=== PATIENT | male | born 1975 | race Caucasian/White ===

== ENCOUNTER 2017-07-10 06:27 | Emergency (ER) | payer OTHER ==
[2017-07-10 06:54] VITALS: TEMP 97.7
--- NOTE | 2017-07-10 07:00 | EDPHY ---
H & P Smoking Status: Current every day smoker Time Seen by Provider: 07/10/17 06:49 HPI/ROS: CC: right shoulder pain HPI: This 42-year-old right hand male a with past medical history of traumatic injuries after a fall from a bridge in 1997 presents to the emergency department today complaining of right shoulder pain. 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 The pain is in the anterior upper chest near the clavicle region and radiates straight through to his back. It hurts when he moves his arm. He feels like his right arm has less strength than usual. "I have no push and pull." No relief with ibuprofen (last dose this a.m.) He states occasionally he will feel short of breath he with this pain. He admits to smoking 1 pack of cigarettes a day for the last 35 years. He denies recent illness. He has not had a fever, productive cough, sore throat, chest pain, palpitations, abdominal pain, leg pain or swelling. No recent long trips or travel. REVIEW OF SYSTEMS: Constitutional: No fever, no chills. Eyes: No discharge. ENT: No sore throat. Respiratory: See HPI. Cardiac: See HPI. Gastrointestinal: No abdominal pain, no vomiting. Genitourinary: No hematuria. Musculoskeletal: No neck or back pain. No leg pain or swelling. Skin: No rashes. Neurological: No headache. (Tracee Valencia) Past Medical/Surgical History: PMH: Fall from a bridge in 1997 PSH: Due to the fall from a bridge, the patient had reconstructive surgery of his right hip, screws in his pelvis, pins in his neck from C1 through C4, a pneumothorax and a splenectomy. He had his gallbladder out he more recently. FH: Denied. No premature coronary artery disease. NKDA Meds: None No PCP (moved here from [place] this summer). (Tracee Valencia) Social History: Patient states he has smoked 1 pack of cigarette per day for the last 35 years. He denies alcohol use. He will smoke marijuana occasionally and denies other drug use. He has no primary care provider as he just moved here from [place] this past summer. (Tracee Valencia) Physical Exam: General Appearance: Alert, mild distress. Eyes: Pupils equal and round no pallor or injection. ENT, Mouth: Mucous membranes are moist. Respiratory: There are no retractions, lungs are clear to auscultation. Cardiovascular: Regular rate and rhythm. Chest wall: TTP over distal right clavicle. No obvious deformity. Gastrointestinal: Abdomen is soft and nontender, no masses, bowel sounds normal. Neurological: Awake and alert. Skin: Warm and dry, no rashes. Musculoskeletal: Neck is supple nontender. Extremities are symmetrical, full range of motion. No calf swelling, warmth, cords or erythema. Pain with abduction of right shoulder and decreased strength (+Gary test). Psychiatric: Patient is oriented X 3, there is no agitation. DIFFERENTIAL DIAGNOSIS: After history and physical exam differential diagnosis was considered for but not limited to: cardiac etiology, pneumothorax, musculoskeletal pain, rotator cuff injury, pneumonia, unlikely PE. (Tracee Valencia) Constitutional: Initial Vital Signs Temperature (C) 36.5 C 07/10/17 06:37 Heart Rate 75 07/10/17 06:37 Respiratory Rate 15 07/10/17 06:37 Blood Pressure 149/100 H 07/10/17 06:37 O2 Sat (%) 98 07/10/17 06:37 O2 Delivery Mode Room Air Allergies/Adverse Reactions: No Known Allergies Allergy (Unverified 07/10/17 06:37) Home Medications: Medication Instructions Recorded Hydrocodone/APAP 5/325 [[place] 1 - 2 tab PO Q4 #13 tab 07/10/17 5/325 (RX)] Medical Decision Making ED Course/Re-evaluation: The patient was seen and examined. His vital signs were reviewed and was notable for elevated blood pressure. His oxygen saturations on room air were within normal limits. He was given two 5 mg [place] tablets for his pain as he had already taken ibuprofen this morning. An EKG was performed showed normal sinus rhythm with a heart rate 58 in no acute ischemic changes. X-ray of his right shoulder and chest x-ray were ordered and signed out to the oncoming provider Dr. Marisol Vazquez who will re-evaluate and disposition the patient. (Tracee Valencia) 700: The patient is signed out to me at change of shift. I reviewed the case with Dr. Marvin. I went personally evaluated the patient. Patient does state he works as a arc welder is not sure if he hurt himself. His pain is in his right shoulder. It feels as though she was anteriorly through the posterior part of the shoulder. Is worse with movement. He has mild decreased strength. No numbness or tingling. No neck pain. He has no headache. The patient describes chest pain, but states this radiates from her shoulder. No new shortness of breath. The patient is a long-time smoker. GENERAL: Well-appearing, in no acute distress, alert. HEENT: Eyes normal to inspection, normal pharynx, no signs of dehydration. NECK: No thyromegaly, no lymphadenopathy, supple. No tenderness palpation. Full range of motion. RESPIRATORY: Clear to auscultation bilaterally, no rales, rhonchi or wheezing. CVS: Regular rate and rhythm, no rubs, murmurs, or gallops. SKIN: Normal color, no rash, warm, dry. No pallor. Tattoos. EXTREMITIES: Patient's right extremity appears normal. He has mild tenderness palpation deep into his anterior right shoulder. It is worse with rotation. Neurovascular intact distally NEURO/PSYCH: Alert and oriented, normal mood and affect, normal motor sensory exam. EKG shows normal sinus rhythm, normal rate, normal axis, normal intervals. There are no ST or T-wave abnormalities. EKG is normal as interpreted by me. Right shoulder x-ray: No acute disease noted. Chest x-ray: No acute disease noted. The patient does have some nodules. Please refer the dictated report by the radiologist. I discussed the results with the patient. Answered all his questions. He will follow up with Orthopedics and his primary care physician. He is aware that his primary care physician needs to follow up on the nodule seen on his chest x- ray. Patient does have a smoking history. He is given warnings prior to leaving. He will return with worsening symptoms. I do not feel this is secondary to ACS, acute WI, pneumonia, pneumothorax, mass , malignancy or PE. (Marisol Vazquez) - Data Points Medications Given: Discontinued Medications Hydrocodone Bitart/Acetaminophen ([place] 5/325) 2 tab PO EDNOW ONE Stop: 07/10/17 07:02 Last Admin: 07/10/17 07:10 Dose: 2 tab Departure - Departure Disposition: Home, Routine, Self-Care Clinical Impression: Right shoulder pain Qualifiers: Chronicity: acute Qualified Code(s): M25.511 - Pain in right shoulder Condition: Good Instructions: Shoulder Pain (ED) Additional Instructions: You need close follow-up with your primary care physician as well as Orthopedics. There is no fracture or bony abnormality. Your chest x-ray did reveal a few nodules. This will need follow-up by your primary care physician because he was smoking history. You were given contact information with Dr. Denson if you do not have a primary care physician. Referrals: Gonzalo Katz MD [Medical Doctor] - 5-7 days, call for appt. Carlos Denson MD [Medical Doctor] - 5-7 days, call for appt. Prescriptions: Hydrocodone/APAP 5/325 [[place] 5/325 (RX)] 1 - 2 tab PO Q4 #13 tab
[2017-07-10] MEDS ORDERED: HYDROCODONE/APAP 5/325 TAB PO ONE (07:01)
--- NOTE | 2017-07-10 07:07 | CPEKG ---
Heart Rate: 58 RR Interval: 1034 P-R Interval: 168 QRSD Interval: 88 QT Interval: 412 QTC Interval: 405 P [place]: 16 QRS [place]: 78 T Wave [place]: 34 EKG Severity - NORMAL ECG - EKG Impression: SINUS RHYTHM Electronically Signed By: Tracee Valencia 10-Jul-2017 07:19:49
[2017-07-10 07:42] VITALS: BP 149/92; PULSE 68; RESP 18; O2SAT 97
== END 2017-07-10 07:38 | disposition home or self-care (01) ==
LOC: CED 06:27
DX: M25.511 Pain in right shoulder (principal); F17.200 Nicotine dependence, unspecified, uncomplicated
CPT/HCPCS: 71020-PO; 73030-PO

== ENCOUNTER 2017-09-18 10:59 | Emergency (ER) | payer OTHER ==
[2017-09-18 11:11] VITALS: TEMP 98.1
[2017-09-18] MEDS ORDERED: NS 1,000 ML IV ONE (11:14)
[2017-09-18] MEDS ORDERED: HYDROmorphONE/DILAUDID 1 MG/ML INJ IVP ONE (11:48)
--- NOTE | 2017-09-18 11:51 | EDPHY ---
H & P Stated Complaint: last night started with L flank pain Time Seen by Provider: 09/18/17 11:14 HPI/ROS: This patient complains of left flank pain gradual in onset-intermittent yesterday but severe today 10/10 intensity at its peak with slight improvement after 800 mg of ibuprofen at 5:00 a.m.. The pain is nonradiating, sharp in nature and similar to prior kidney stones. Patient reports some hematuria work the prompted his visit here for further evaluation. His drove here by private vehicle for further evaluation. He reports associated diaphoresis with the pain which is happened to him in the past with his kidney stone pain. ROS: No fevers or chills. No other constitutional symptoms HEENT: No URI symptoms Pulmonary: No shortness of breath pleuritic pain GI: No nausea vomiting or abdominal pain. : No testicular pain or swelling. No dysuria. Musculoskeletal: No recent back injuries. This does not feel muscular to him. No midline back pain. No worsening with movement such as bending forward. Integumentary: No skin rash 10 point ROS is otherwise negative. Source: Patient Exam Limitations: No limitations - Personal History Current Tetanus/Diphtheria Vaccine: Yes - Medical/Surgical History PMH: Kidney stones Hx Asthma: No Hx Chronic Respiratory Disease: No Hx Diabetes: No Hx Cardiac Disease: No Hx Renal Disease: No Hx Cirrhosis: No Hx Alcoholism: No Hx HIV/AIDS: No Hx Splenectomy or Spleen Trauma: Yes Other PMH: spleenectomy, cholecystectomy - Family History Significant Family History: No pertinent family hx - Social History Smoking Status: Current every day smoker Alcohol Use: None Drug Use: Marijuana - Physical Exam Exam: General Appearance: Alert, no distress. Eyes: Pupils equal and round no pallor or injection. ENT, Mouth: Mucous membranes moist. Respiratory: There are no retractions, lungs are clear to auscultation. Cardiovascular: Regular rate and rhythm. Gastrointestinal: Abdomen is soft and nontender, no masses, bowel sounds normal. Back: Moderate left CVA tenderness. No midline back tenderness or right CVA tenderness. The patient has increased pain-slightly with back extension compared to back flexion. Straight leg raise is negative bilaterally. Neurological: GCS 15. Maintains normal light touch sensory exam bilateral lower extremities, 5/5 strength in great toe dorsiflexion plantar flexion bilaterally, Skin: Warm and dry, no rashes. Musculoskeletal: Neck is supple nontender. Extremities are symmetrical, full range of motion. Psychiatric: Mood and affect are normal DIFFERENTIAL DIAGNOSIS: After history and physical exam differential diagnosis was considered for left ureteral stone, pyelonephritis, musculoskeletal back pain Constitutional: Initial Vital Signs Temperature (C) 36.7 C 09/18/17 11:08 Heart Rate 92 09/18/17 11:08 Respiratory Rate 20 09/18/17 11:08 Blood Pressure 153/85 H 09/18/17 11:08 O2 Sat (%) 96 09/18/17 11:08 O2 Delivery Mode Room Air Allergies/Adverse Reactions: No Known Allergies Allergy (Verified 09/18/17 11:11) Home Medications: Medication Instructions Recorded Methocarbamol [Robaxin 750 mg (*)] 750 - 1,500 mg PO QID PRN #30 tab 09/18/17 traMADol [Ultram 50 mg (*)] 50 - 100 mg PO Q4 PRN #20 tab 09/18/17 Medical Decision Making - Diagnostics Imaging: Discussed imaging studies w/ calliope player Radiologist (I also reviewed the images myself) ED Course/Re-evaluation: IV normal saline bolus Dilaudid 1 mg IV with improvement Discussion: CT abdomen pelvis reveals no hydronephrosis and no ureteral stone at this time. The patient may have passed a stone. He also may have a primary musculoskeletal source of low back pain given nature of his work and worsening of his current pain with back extension. I counseled regarding this. No radiculopathy or evidence of cauda equina. He does have microscopic hematuria. This projects suggest a recently passed stone versus minor trauma. I counseled patient regarding low back stretches that may help his back discomfort. - Data Points Laboratory Results: Laboratory Results 09/18/17 11:38 Medications Given: Discontinued Medications Hydromorphone HCl (Dilaudid) 1 mg IVP EDNOW ONE Stop: 09/18/17 11:49 Last Admin: 09/18/17 11:54 Dose: 1 mg Sodium Chloride (Ns) 1,000 mls @ 0 mls/hr IV EDNOW ONE; Wide Open PRN Reason: Protocol Stop: 09/18/17 11:15 Last Admin: 09/18/17 11:37 Dose: 1,000 mls Departure - Departure Disposition: Home, Routine, Self-Care Clinical Impression: Low back pain, Microscopic hematuria, Lung calcification Condition: Good Instructions: Methocarbamol (By mouth), Tramadol (By mouth), Acute Low Back Pain (ED) Additional Instructions: Diagnoses: 1. Low back pain-left side 2. Microscopic hematuria (blood in urine) 3. L. Lung calcification Your CT of the abdomen pelvis reveals no ureteral stones at this time. You do have a small calcification at the base of the left lung 7.5 mm in size. This warrants a repeat CT chest in 3-6 months to evaluate for any interval change. Plan: Ibuprofen 400-600 mg per 6 hours regularly for the next week then as needed. Methocarbamol muscle relaxants as needed. Tylenol in addition as needed for pain. Tramadol in addition if needed for pain control. No driving, alcohol work on tramadol. Starts daily stretches prior to taking muscle relaxants and tramadol in the morning. 3-5 minutes each of: "Butterfly stretch," "Sphinx stretch", "pigeon stretch", and hamstring stretch. Avoid lifting more than 5-10 pounds until symptoms improve. Also, consider looking up Foundation exercises online to strengthen the small muscles in the back. Call Dr. Denson, primary care physician for a followup appointment in 3-7 days to recheck her urine, evaluate your back pain and schedule an outpatient CT chest with no contrast for 3-6 months from now -sometime between December and February for the repeat CT Return to the emergency department for worsening of your symptoms despite the treatment plan. Referrals: NONE *PRIMARY CARE P,. [Primary Care Provider] - As per Instructions Carlos Denson MD [Medical Doctor] - As per Instructions Stand Alone Forms: Work Excuse Prescriptions: Methocarbamol [Robaxin 750 mg (*)] 750 - 1,500 mg PO QID PRN #30 tab PRN Reason: Muscle Spasms traMADol [Ultram 50 mg (*)] 50 - 100 mg PO Q4 PRN #20 tab PRN Reason: breakthrough pain
[2017-09-18 11:52] LABS: COLOR YELLOW; LEUKOCYTE ESTERASE,URINE TRACE (NEGATIVE); NITRITE,URINE NEGATIVE (NEGATIVE)
[2017-09-18 12:03] LABS: BACTERIA TRACE /hpf (NONE SEEN); HYALINE CASTS 0-1 /lpf (0-1); MUCUS 1+ /lpf (NONE-1+)
[2017-09-18 12:05] LABS: ANION GAP 15 mEq/L (8-16); CALCIUM 9.5 mg/dL (8.5-10.4); CARBON DIOXIDE 26 mEq/l (22-31); CHLORIDE 102 mEq/L (97-110); CREATININE 0.9 mg/dL (0.7-1.3); GLOMERULAR FILTRATION RATE > 60; GLUCOSE 92 mg/dL (70-100); POTASSIUM 4.3 mEq/L (3.5-5.2); SODIUM 143 mEq/L (134-144)
[2017-09-18 12:43] VITALS: RESP 16; O2SAT 95
[2017-09-18 14:01] VITALS: BP 154/103; PULSE 86
== END 2017-09-18 13:52 | disposition home or self-care (01) ==
LOC: CED 10:59
DX: M54.5 Low back pain (principal); R31.29 Other microscopic hematuria; J98.4 Other disorders of lung; F17.200 Nicotine dependence, unspecified, uncomplicated; E86.9 Volume depletion, unspecified
CPT/HCPCS: 74176-PO; 80048-PO; 81003-PO; 81015-PO; 96374; J1170